=== PATIENT | female | born 1955 | race Caucasian/White ===

== ENCOUNTER 2022-07-16 19:45 | Emergency (ER) | payer SELFPAY ==
--- NOTE | 2022-07-16 19:48 | ED_ITS ---
HPI - General Adult General Chief complaint: Abdominal Pain Stated complaint: abd pain/n/loss 9 pounds Related Data Allergies Allergy/AdvReac Type Severity Reaction Status Date / Time acetaminophen [From Percocet] Allergy Unknown Verified 07/16/22 20:14 caffeine Allergy Unknown Verified 07/16/22 20:14 codeine Allergy Unknown Verified 07/16/22 20:14 haloperidol [From Haldol] Allergy Unknown Verified 07/16/22 20:14 levofloxacin [From Levaquin] Allergy Unknown Verified 07/16/22 20:14 morphine Allergy Unknown Verified 07/16/22 20:14 oxycodone Allergy Unknown Verified 07/16/22 20:14 Penicillins Allergy Unknown Verified 07/16/22 20:14 phentermine [From Suprenza] Allergy Unknown Verified 07/16/22 20:14 tramadol Allergy Unknown Verified 07/16/22 20:14 vancomycin Allergy Unknown Verified 07/16/22 20:14 Physical Exam ED Vital Signs: Vital Signs - 24 hr 07/16/22 19:52 Temperature 97.4 F Pulse Rate 69 Respiratory Rate 19 Blood Pressure 128/89 Pulse Oximetry 96 Oxygen Delivery Method Room Air BMI result Body Mass Index 15.8 Course Course Course Narrative: This is an RME: Additional HPI, ROS, PE not included below will be deferred to primary provider. This is a 67-year-old female, with a past medical history of a fib with pacemaker on the right Eliquis 5mg BID, iron deficiency anemia, COPD, diet controlled diabetes, with complaints of stomach pain x months. States pain has gotten progressively worse. Has been seen by GI at [facility] who has ordered an endoscopy but will not be performed until August. Weight loss of 118 lbs in Dec now 104lbs. Eating 6 meals a day, having nausea and constipation. VSS. Pt tearful. Plan: Labs, UA, CT abd and pelvis w/ contrast ordered. Reevaluation(s) Reevaluation #1: Pt left without being seen or having labs, UA, CT performed. Medical Decision Making Lab Data 07/16/22 21:03 07/16/22 21:03 Labs: Lab Results 07/16/22 07/16/22 Range/Units 21:03 21:03 WBC 5.0 (4.8-10.8) X10*3/uL RBC 4.61 (4.20-5.50) X10*6/uL Hgb 12.2 (12.0-16.0) g/dl Hct 39.1 (37.0-47.0) % MCV 84.8 (80.0-98.0) fL MCH 26.5 L (27.0-33.0) pg MCHC 31.2 (31.0-35.0) g/dl RDW 14.6 (11.0-16.0) % Plt Count 159 L (160-400) X10*3/uL MPV 8.8 L (9.4-12.3) fL Immature Gran % (Auto) 0.4 (0.0-0.4) % Neut % (Auto) 62.8 (45-73) % Lymph % (Auto) 19.7 L (20-40) % Atkinson % (Auto) 12.5 H (2-11) % Eos % (Auto) 3.6 (0-4) % Baso % (Auto) 1.0 (0-2) % Lymph # (Auto) 1.0 L (1.2-4.9) X10*3/uL Atkinson # (Auto) 0.6 (0.1-1.2) X10*3/uL Eos # (Auto) 0.2 (0.0-0.4) X10*3/uL Baso # (Auto) 0.1 (0.0-0.2) X10*3/uL Abs Immat Gran (auto) 0.02 (0.00-0.03) X10*3/uL Absolute Neuts (auto) 3.2 (2.0-8.3) x10*3/uL Absolute Nucleated RBC 0.000 (0.0-0.012) X10*3/uL Nucleated RBC % (auto) 0.0 (0.0-0.2) /100WBC Sodium 138 (135-145) mmol/L Potassium 4.5 (3.3-5.1) mmol/L Chloride 104 (96-108) mmol/L Carbon Dioxide 27 (22-29) mmol/L Anion Gap 12 (12-20) BUN 13 (9-16) mg/dL Creatinine 1.02 (0.5-1.4) mg/dL Estim Creat Clear Calc 39.3 Estimated GFR 54 Random Glucose 155 H (60-115) mg/dL Calcium 9.9 (8.4-10.2) mg/dL Magnesium 2.0 (1.6-2.6) mg/dL Total Bilirubin 0.4 (0.0-1.0) mg/dL Direct Bilirubin 0.1 (0.0-0.5) mg/dL AST 30 (5-31) U/L ALT 63 H (0-31) U/L Alkaline Phosphatase 106 (39-117) U/L Total Protein 6.9 (6.5-8.0) g/dL Albumin 4.4 (3.5-5.0) g/dL Lipase 82 H (8-78) U/L Discharge Plan Discharge Clinical Impression: Stomach pain Patient Disposition: Left Without Being Seen Interventions: LWBS Worksheet Last Done: 07/16/22 22:57 Discharge Date/Time: 07/16/22 22:57
[2022-07-16 19:52] VITALS: BP 128/89; PULSE 69; RESP 19; TEMP 36.3; O2SAT 96; BMI 15.8
[2022-07-16 21:07] LABS: MANUAL DIFF FLAG NO
[2022-07-16 21:08] LABS: Basophils Absolute Auto 0.1 X10*3/uL (0.0-0.2); Eosinophils Absolute Auto 0.2 X10*3/uL (0.0-0.4); Eosinophils Percent Auto 3.6 % (0-4); Hematocrit 39.1 % (37.0-47.0); Hemoglobin 12.2 g/dl (12.0-16.0); Imm Gran Abs Auto 0.02 X10*3/uL (0.00-0.03); Imm Gran Pct Auto 0.4 % (0.0-0.4); Lymphocytes Percent Auto 19.7 % (20-40); Mean Corpuscular HGB Conc 31.2 g/dl (31.0-35.0); Mean Corpuscular Hemoglobin 26.5 pg (27.0-33.0); Mean Corpuscular Volume 84.8 fL (80.0-98.0); Mean Platelet Volume 8.8 fL (9.4-12.3); Monocytes Absolute Auto 0.6 X10*3/uL (0.1-1.2); Monocytes Percent Auto 12.5 % (2-11); Neutrophils Absolute Auto 3.2 x10*3/uL (2.0-8.3); Neutrophils Percent Auto 62.8 % (45-73); Platelet Count 159 X10*3/uL (160-400); Red Blood Count 4.61 X10*6/uL (4.20-5.50); Red Cell Distribution Width 14.6 % (11.0-16.0)
[2022-07-16 21:29] LABS: Alanine Aminotransferase 63 U/L (0-31); Albumin Level 4.4 g/dL (3.5-5.0); Alkaline Phosphatase 106 U/L (39-117); Anion Gap 12 (12-20); Aspartate Amino Transferase 30 U/L (5-31); Bilirubin Direct 0.1 mg/dL (0.0-0.5); Bilirubin Total 0.4 mg/dL (0.0-1.0); Blood Urea Nitrogen 13 mg/dL (9-16); Calcium 9.9 mg/dL (8.4-10.2); Carbon Dioxide 27 mmol/L (22-29); Chloride 104 mmol/L (96-108); Creatinine Clr Calc Pharmacy 39.3; Estimated Glomerular Filt Rate 54; Glucose Random 155 mg/dL (60-115); Lipase 82 U/L (8-78); Potassium 4.5 mmol/L (3.3-5.1); Sodium 138 mmol/L (135-145); Total Protein 6.9 g/dL (6.5-8.0)
--- NOTE | 2022-07-16 22:39 | PC.NURSE ---
pt not in waiting room on 2 calls. [phone] and [phone]
== END 2022-07-16 22:57 | disposition left against medical advice (07) ==
PROVIDERS: Physician Assistant Medical; Emergency Provider Emergency Medicine; PCP Internal Medicine
DX: R10.9 Unspecified abdominal pain (principal); E11.9 Type 2 diabetes mellitus without complications; I48.91 Unspecified atrial fibrillation; Z95.0 Presence of cardiac pacemaker; Z79.01 Long term (current) use of anticoagulants
CPT/HCPCS: 36415; 80048; 80076; 83690; 83735; 85025; 99281; 99283

== ENCOUNTER 2022-07-30 10:28 | Outpatient (REF) | payer MEDICARE, MEDICAID, SELFPAY ==
[2022-07-30 12:00] LABS: Hematocrit 40.8 % (37.0-47.0); Hemoglobin 12.6 g/dl (12.0-16.0); Mean Corpuscular HGB Conc 30.9 g/dl (31.0-35.0); Mean Corpuscular Hemoglobin 26.3 pg (27.0-33.0); Mean Corpuscular Volume 85.2 fL (80.0-98.0); Mean Platelet Volume 8.9 fL (9.4-12.3); Platelet Count 187 X10*3/uL (160-400); Red Blood Count 4.79 X10*6/uL (4.20-5.50); Red Cell Distribution Width 14.2 % (11.0-16.0); White Blood Count 4.2 X10*3/uL (4.8-10.8)
[2022-07-30 12:05] LABS: INTERNATIONAL NORM RATIO 1.6 (0.9-1.1)
[2022-07-30 13:04] LABS: Alanine Aminotransferase 61 U/L (0-31); Albumin Level 4.5 g/dL (3.5-5.0); Alkaline Phosphatase 105 U/L (39-117); Anion Gap 13 (12-20); Aspartate Amino Transferase 39 U/L (5-31); Bilirubin Total 0.5 mg/dL (0.0-1.0); Blood Urea Nitrogen 12 mg/dL (9-16); Calcium 10.4 mg/dL (8.4-10.2); Carbon Dioxide 28 mmol/L (22-29); Chloride 103 mmol/L (96-108); Estimated Glomerular Filt Rate > 60; Glucose Random 117 mg/dL (60-115); Potassium 4.7 mmol/L (3.3-5.1); Sodium 139 mmol/L (135-145); Total Protein 7.8 g/dL (6.5-8.0)
[2022-07-30 13:08] LABS: HBS Num1 0.06 mIU/mL (0-7.99); HBc Num1 0.09 S/CO (0.00-0.79); HBsAGNum1 0.31 S/CO (0.00-0.99); HIV AB/AG Nonreactive (Nonreactive); HIV Num 1 0.06 S/CO (0.00-0.99); Hepatitis A Antibody IgG Nonreactive (Nonreactive); Hepatitis B Core Antibody Nonreactive (Nonreactive); Hepatitis B Surface Antigen Negative (Negative); ~Hepatitis B Surface Antibody NONREACTIVE (Nonreactive)
[2022-07-30 13:09] LABS: Ferritin 37 ng/mL (10-250); TSH reflex Free T4 1.69 uIU/mL (0.32-4.0); Vitamin D 25-OH Total 39.4 ng/mL (>30); ~HepC Num1 0.06 S/CO (0.00-0.79); ~Hepatitis C Antibody Nonreactive (Nonreactive)
[2022-08-04 09:39] LABS: Immunoglobulin G 842 mg/dL (600-1540)
== END 2022-07-30 10:29 | disposition home or self-care (01) ==
LOC: HO.LAB 10:28
PROVIDERS: PCP Internal Medicine; Visit Provider Internal Medicine
DX: Z11.4 Encounter for screening for human immunodeficiency virus [HIV] (principal); R10.9 Unspecified abdominal pain; K74.60 Unspecified cirrhosis of liver; R63.4 Abnormal weight loss
CPT/HCPCS: 36415; 80053; 82306; 82728; 82784; 84443; 85027; 85610; 86704; 86706; 86708; 86803; 87340; 87389; 99202

== ENCOUNTER 2022-09-05 12:59 | Outpatient (AMB) | payer MEDICARE, SELFPAY ==
--- NOTE | 2022-09-05 13:01 | MHC.OFFVIS ---
Intake Vital Signs 09/05/22 13:02 Height 5 ft 8 in Weight 103 lb 9.876 oz BMI 15.8 BP 126/63 Blood Pressure Location Lt brachial Position Sitting Pulse 71 Intake Visit Reasons: 4 Week, GERD, Weight Loss Intake Note: Zahida presents in the office as a 4 week follow up for GERD and weight loss. CC: She states that she is not feeling well. She had a EGD - she was told that she has mild gastritis and it looked like both valves were working. She was THEN told that she does NOT have gastritis - it was only put for her biopsy. She is now scheduled for a pill cam and a GES both in the end of september. She was told that diabetes may have disabled her pylori valve so now she is very confused. She is very scared. 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 Allergies acetaminophen [From Percocet] Allergy (Verified 09/05/22 13:05) Unknown caffeine Allergy (Verified 09/05/22 13:05) Unknown codeine Allergy (Verified 09/05/22 13:05) Unknown haloperidol [From Haldol] Allergy (Verified 09/05/22 13:05) Unknown levofloxacin [From Levaquin] Allergy (Verified 09/05/22 13:05) Unknown morphine Allergy (Verified 09/05/22 13:05) Unknown oxycodone Allergy (Verified 09/05/22 13:05) Unknown Penicillins Allergy (Verified 09/05/22 13:05) Unknown phentermine [From Suprenza] Allergy (Verified 09/05/22 13:05) Unknown tramadol Allergy (Verified 09/05/22 13:05) Unknown vancomycin Allergy (Verified 09/05/22 13:05) Unknown HPI HPI Comments History of Present Illness Details 67 y.o F with PMH of pAF on eliquis, hx of VT s/p ICD placement, asthma, prediabetes, HTN, IBS who is here for abdominal pain and weight loss. Reports having L sided abdominal pain associated with decreased appetite and weight loss x 6 months. Was seeing GI at [facility] who increased her antisecretory therapy without any improvement in sx. Feels a fullness and early satiety with meals has frequent nausea and vomiting. Supplementing with glucerna and pedialyte. Has increased her number of meals as well but continues to lose weight, reportedly 10 lbs weight loss in 3 months. Tells me has an upper endoscopy scheduled with them for end of July. Last colo [address] Salazar. Does not recall having polyps. 09/05/22: CTA from [facility] reviewed. Normal GI, liver and pancreas. Had EGD 08/14/22 at [facility] by Dr Chow which showed mild gastritis but otherwise normal. VCE and GES scan scheduled for next month. LFTs noted. ALT>AST. IgG normal. Pt continues to be very tearful and anxious re any possible diagnoses that these testing may lead to. Also reviewed her meal chart and seems to be restricting her calories a lot due to her fear of making her diabetes worse. [facility] Medical History (Updated 09/05/22 @ 19:06 by Isha Cheney MD) Asthma Atrial fibrillation Hypertension Prediabetes Ventricular tachycardia Surgical History (Updated 09/05/22 @ 13:05 by ESTHELA Whitney) History of esophagogastroduodenoscopy (EGD) Hx of colonoscopy Family History Maternal Uncle Colon cancer Social History Household Members: Spouse Alcohol intake: current Alcohol intake frequency: does not drink Patient Tobacco Use Status: Former Tobacco user Review of Systems Const All systems reviewed & are unremarkable except as noted in HPI and below Physical Exam Vital Signs: Last Vital Signs Pulse 71 09/05/22 13:02 BP 126/63 09/05/22 13:02 BMI result Body Mass Index 15.8 Gen appear: NAD, undernourished HEENT: nonicteric, no cervical lymphadenopathy Chest: CTA CVS: Regular S1/S2 Abd: soft, diffusely tender, nondistended Ext: no peripheral edema Neuro: A/Ox3, noted to move all extremities spontaneously Psych: interacting appropriately Assessment & Plan Assessment & Plan (1) Unintentional weight loss: Code(s): R63.4 - Abnormal weight loss (2) Abdominal pain: Code(s): R10.9 - Unspecified abdominal pain (3) Elevated LFTs: Code(s): R79.89 - Other specified abnormal findings of blood chemistry Plan Patient currently getting work up from both [facility] as well as here. Will await results of pillcam and gastric emptying study. In the meantime, she was advised to not restrict her calories and to liberate the protein component of her diet which should not affect her sugars. She was also encouraged to meet wiht a keyseater operator for meal planning. Also concerned re her heightened anxiety and encouraged to speak with her therapist or to seek out a psychiatrist. Reviewed elevated LFTs, and will get autoimmune, iron, ceruloplasmin work up for this. Can get this before next visit. If negative, low threshold for liver biopsy as otherwise no etOH, steatosis or hepatitis noted. Follow up in 6 weeks i.e after testing from [facility]. Orders: Orders Ferritin 5 Weeks - Other specified abnormal findings of blood chemistry IRON PROFILE 5 Weeks - Other specified abnormal findings of blood chemistry NIKOLE Reflex Titer and Pattern 5 Weeks - Other specified abnormal findings of blood chemistry Liver Kidney Microsomal Ab 5 Weeks - Other specified abnormal findings of blood chemistry Smooth Muscle Antibody 5 Weeks - Other specified abnormal findings of blood chemistry Phosphatidylethanol, Blood 5 Weeks - Other specified abnormal findings of blood chemistry Ceruloplasmin 5 Weeks - Other specified abnormal findings of blood chemistry Coding Level of Care Code Est Pt Level 4 (51679) Diagnoses Unintentional weight loss R63.4 Abdominal pain R10.9 Elevated LFTs
[2022-09-05 13:02] VITALS: BP 126/63; PULSE 71; BMI 15.8
== END 2022-09-05 14:35 | disposition home or self-care (01) ==
PROVIDERS: PCP Internal Medicine; Visit Provider Internal Medicine
DX: R63.4 Abnormal weight loss (principal); R10.9 Unspecified abdominal pain; R79.89 Other specified abnormal findings of blood chemistry
CPT/HCPCS: 99214

== ENCOUNTER → 2022-09-05 12:59 | Outpatient (BNVA) | payer MEDICARE, OTHER, SELFPAY | PROVIDERS: PCP Internal Medicine; Visit Provider Internal Medicine | DX: R63.4 Abnormal weight loss (principal); R10.9 Unspecified abdominal pain; R79.89 Other specified abnormal findings of blood chemistry; K21.9 Gastro-esophageal reflux disease without esophagitis | CPT/HCPCS: 99212 ==

== ENCOUNTER 2022-10-06 13:49 | Outpatient (REF) | payer MEDICARE, OTHER, SELFPAY ==
[2022-10-06 15:21] LABS: Iron 56 mcg/dL (30-160); Percent Iron Saturation 16 % (15-50); Total Iron Binding Capacity 353 mcg/dL (228-428); Unsaturated Iron Binding 297 ug/dL
[2022-10-06 15:31] LABS: Ferritin 16 ng/mL (10-250)
[2022-10-08 16:43] LABS: Anti Nuclear Antibody Screen NEGATIVE (NEGATIVE)
[2022-10-09 16:33] LABS: Ceruloplasmin 30 mg/dL (18-53)
[2022-10-10 23:24] LABS: Liver Kidney Microsomal Ab <=20.0 U (<=20.0)
[2022-10-11 13:28] LABS: Smooth Muscle Antibody <20 U (<20)
[2022-10-13 08:29] LABS: Phosphatidylethanol 16:0-18:1 NEGATIVE; Phosphatidylethanol 16:0-18:2 NEGATIVE
== END 2022-10-06 13:50 | disposition home or self-care (01) ==
LOC: HO.LAB 13:49
PROVIDERS: PCP Internal Medicine; Visit Provider Internal Medicine
DX: R79.89 Other specified abnormal findings of blood chemistry (principal); R63.4 Abnormal weight loss; R10.9 Unspecified abdominal pain; Z79.899 Other long term (current) drug therapy
CPT/HCPCS: 36415; 80321; 82390; 82728; 83540; 86015; 86038; 86376

== ENCOUNTER 2022-10-10 13:15 | Outpatient (AMB) | payer MEDICARE, OTHER, SELFPAY ==
--- NOTE | 2022-10-10 13:18 | MHC.OFFVIS ---
Intake Vital Signs 10/10/22 13:20 Height 5 ft 8 in Weight 108 lb 0.424 oz BMI 16.4 BP 129/61 Blood Pressure Location Lt brachial Position Sitting Pulse 70 Intake Visit Reasons: Follow up 5 weeks Intake Note: Zahida presents in the office as a 5 week follow up. CC: She states that she has done all her testings with her last Dr and she states that she is till having bloating in the center of her abdomen. She said that it feels like gas that is trapped in her intestines and her stomach will get hard. She gets constipation that is very regular for her. 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 Allergies acetaminophen [From Percocet] Allergy (Verified 10/10/22 13:20) Unknown caffeine Allergy (Verified 10/10/22 13:20) Unknown codeine Allergy (Verified 10/10/22 13:20) Unknown haloperidol [From Haldol] Allergy (Verified 10/10/22 13:20) Unknown levofloxacin [From Levaquin] Allergy (Verified 10/10/22 13:20) Unknown morphine Allergy (Verified 10/10/22 13:20) Unknown oxycodone Allergy (Verified 10/10/22 13:20) Unknown Penicillins Allergy (Verified 10/10/22 13:20) Unknown phentermine [From Suprenza] Allergy (Verified 10/10/22 13:20) Unknown tramadol Allergy (Verified 10/10/22 13:20) Unknown vancomycin Allergy (Verified 10/10/22 13:20) Unknown HPI HPI Comments History of Present Illness Details 67 y.o F with PMH of pAF on eliquis, hx of VT s/p ICD placement, asthma, prediabetes, HTN, IBS who is here for follow up. 07/30/22: Initially seen for abdominal pain and weight loss. Reports having L sided abdominal pain associated with decreased appetite and weight loss x 6 months. Was seeing GI at [facility] who increased her antisecretory therapy without any improvement in sx. Feels a fullness and early satiety with meals has frequent nausea and vomiting. Supplementing with glucerna and pedialyte. Has increased her number of meals as well but continues to lose weight, reportedly 10 lbs weight loss in 3 months. Tells me has an upper endoscopy scheduled with them for end of July. Last colo [address] Salazar. Does not recall having polyps. 09/05/22: CTA from [facility] reviewed. Normal GI, liver and pancreas. Had EGD 08/14/22 at [facility] by Dr Chow which showed mild gastritis but otherwise normal. VCE and GES scan scheduled for next month. LFTs noted. ALT>AST. IgG normal. Pt continues to be very tearful and anxious re any possible diagnoses that these testing may lead to. Also reviewed her meal chart and seems to be restricting her calories a lot due to her fear of making her diabetes worse. 10/10/22: Met with certified adaptive physical educator and as previously mentioned to her, was truly miscalculating her carbs/calories and severely restricting her diet. This has been liberated. Not having any further weight loss - but has not regained weight just yet either. Also recently started on mirtazipine but discontinued due to grogginess. Pillcam study and GES normal per her report. Now main gastrointestinal issue is bloating and distention christopher post meal, mostly localised to LLQ. [facility] Medical History Asthma Atrial fibrillation Hypertension Prediabetes Ventricular tachycardia Surgical History History of esophagogastroduodenoscopy (EGD) Hx of colonoscopy Family History Maternal Uncle Colon cancer Social History Household Members: Spouse Alcohol intake: current Alcohol intake frequency: does not drink Patient Tobacco Use Status: Former Tobacco user Physical Exam Vital Signs: Last Vital Signs Pulse 70 10/10/22 13:20 BP 129/61 10/10/22 13:20 BMI result Body Mass Index 16.4 Gen appear: NAD, undernourished HEENT: nonicteric, no cervical lymphadenopathy Chest: CTA CVS: Regular S1/S2 Abd: soft, diffusely tender, nondistended Ext: no peripheral edema Neuro: A/Ox3, noted to move all extremities spontaneously Psych: interacting appropriately Assessment & Plan Assessment & Plan (1) Abdominal pain: Code(s): R10.9 - Unspecified abdominal pain (2) Elevated LFTs: Code(s): R79.89 - Other specified abnormal findings of blood chemistry (3) Bloating: Code(s): R14.0 - Abdominal distension (gaseous) (4) Unintentional weight loss: Code(s): R63.4 - Abnormal weight loss Plan 1. Unintentional weight loss has resolved - was likely due to restricting calories inadvertently. Extensive work up outlined above, negative. 2. Abd pain and bloating- Ddx include SIBO, functional dyspepsia. Will trial FD-Cornelio. 3. Elevated LFTs - hepatitis, NIKOLE, iron studies, and copper studies negative so far. ASMA and antiLKM pending. Will follow. If negative, will repeat LFTs in 4 weeks and if still abnormal, will review indication for liver bx Otherwise follow up in 6 months Medications: New calvin oil-levomenthol 25-20.75 mg (FDgard) 2 caps PO BID 30 days 120 caps 0RF Coding Level of Care Code Est Pt Level 4 (33457) Diagnoses Abdominal pain R10.9 Elevated LFTs R79.89 Bloating R14.0 Unintentional weight loss R63.4
[2022-10-10 13:20] VITALS: BP 129/61; PULSE 70; BMI 16.4
== END 2022-10-10 13:46 | disposition home or self-care (01) ==
PROVIDERS: PCP Internal Medicine; Visit Provider Internal Medicine
DX: R10.9 Unspecified abdominal pain (principal); R79.89 Other specified abnormal findings of blood chemistry; R14.0 Abdominal distension (gaseous); R63.4 Abnormal weight loss
CPT/HCPCS: 99214

== ENCOUNTER → 2022-10-10 13:15 | Outpatient (BNVA) | payer MEDICARE, OTHER, SELFPAY | PROVIDERS: PCP Internal Medicine; Visit Provider Internal Medicine | DX: R10.32 Left lower quadrant pain (principal); R79.89 Other specified abnormal findings of blood chemistry; R14.0 Abdominal distension (gaseous); R63.4 Abnormal weight loss | CPT/HCPCS: 99212 ==